=== PATIENT | female | born 1990 | race African-American/Black ===

== ENCOUNTER 2017-10-02 09:29 | Emergency (ER) | payer OTHER ==
[~2017-10-02] VITALS: Ht 162.6 cm; Wt 61.2 kg
[~2017-10-02 09:29] MED LIST: IBUPROFEN800 M1 PO; PRENATAL TABLE1 EAC2 PO
--- NOTE | 2017-10-02 11:17 | ED GENERAL ADULT ---
History of Present Illness General Chief Complaint: Allergy Symptoms Stated Complaint: ALLERGIC RX STATES FROM FACE CREAM Source: patient Exam Limitations: language barrier Vital Signs & Intake/Output Vital Signs & Intake/Output ED Intake and Output 10/03 0000 10/02 1200 Intake Total 120 Output Total Balance 120 Intake, Oral 120 Patient 135 lb Weight Weight Reported by Patient Measurement Method Allergies Coded Allergies: No Known Allergies (09/10/15) Reconcile Medications Ibuprofen 800 MG TABLET 800 MG PO Q6P PRN UTERINE CRAMPING Methylprednisolone. (Medrol) 4 MG TAB.DS.PK 1 DP PO AD allergic reaction 6 on day 1 then reduce by one tablet daily until gone Vit No.130/Iron/FA ( Tablet) 1 EACH TABLET 1 TAB PO DAILY (Reported) Triage Note: 27 YO FEMALE TO TRIAGE C/O ?ALLERGIC REACTION TO AMLACTIN LOTION. STATES SHE PUT IT ON HER FACE THIS AM AND HER FACE IS BURNING, DENIES SOB. REG RESP RATE NOTED. PT IS PRIMARILY BULGARIAN SPEAKING. NO HIVES NOTED. HR 130s IN TRIAGE, PT TAKEN TO EKG. Triage Nurses Notes Reviewed? yes Onset: Abrupt Duration: hour(s): Timing: constant : No Patient currently breastfeeds: No HPI: 27-year-old otherwise healthy female presenting with facial rash 2 days. Reports that she began using a new facial lotion 6 days ago, used it nightly for 4 days before developing a rash on her face 2 days ago. Has discontinued the lotion and then using [id number] hydrocortisone cream without relief. Denies lip/tongue swelling, throat swelling, difficulty swallowing, chest pain, shortness of breath, abdominal pain, nausea, vomiting, diarrhea. (Nancy Seth) Past History Travel History Traveled to [place] past 21 day No Medical History Any Pertinent Medical History? none Neurological: NONE EENT: NONE Cardiovascular: NONE Respiratory: NONE Gastrointestinal: NONE Hepatic: NONE Renal: NONE Musculoskeletal: NONE Psychiatric: NONE Endocrine: NONE Surgical History Surgical History: appendectomy Psychosocial History What is your primary language Serbian Tobacco Use: Never used Family History Hx Contributory? No (Nancy Seth) Review of Systems Review of Systems Constitutional: Reports: no symptoms. EENTM: Reports: no symptoms. Respiratory: Reports: no symptoms. Cardiovascular: Reports: no symptoms. GI: Reports: no symptoms. Genitourinary: Reports: no symptoms. Musculoskeletal: Reports: no symptoms. Skin: Reports: see HPI, rash. Neurological/Psychological: Reports: no symptoms. Hematologic/Endocrine: Reports: no symptoms. Immunologic/Allergic: Reports: no symptoms. (Nancy Seht) Physical Exam Physical Exam General Appearance: well developed/nourished, no apparent distress, alert, awake , comfortable Head: atraumatic, normal appearance Eyes: Bilateral: normal appearance. Ears, Nose, Throat: normal ENT inspection, No OP edema, tongue swelling, or lip swelling. Neck: normal inspection Respiratory: normal breath sounds, lungs clear Cardiovascular: regular rate/rhythm Gastrointestinal: soft, non-tender Back: normal inspection Extremities: normal inspection Neurologic/Psych: awake, alert, oriented x 3, normal gait Skin: intact, warm/dry, erythematous macular rash to the face, no hives. Core Measures ACS in differential dx? No CVA/TIA Diagnosis: No Sepsis Present: No Sepsis Focused Exam Completed? No (Nancy Seth) Progress Differential Diagnoses I considered the following diagnoses in my evaluation of the patient: [Allergic reaction versus contact dermatitis, low concern for anaphylaxis] Plan of Care: Orders Procedure Date/time Status EKG 10/02 936 Active Pt given benadeyl, pepcid, and prednisone, and reports some relief in her syptoms. No evidence of anaphylaxis. Instructed to D/C lotion, and given rx medrol dose pack. Instructed to use benadryl for the next 24 hours. Counseled on supportive care and strict return precautions. Initial ED EKG: rhythm (sinus), rate (127), no ST T wave changes (Nancy Seth) Departure Departure Disposition: HOME OR SELF CARE Condition: Stable Clinical Impression Primary Impression: Allergic reaction Referrals: Patient Has No Primary Care Dr (PCP/Family) Additional Instructions: Stop using the facial lotion that you purchase. Take 25mg benadryl every 6 hours for the next 24 hours. Take medrol dose pack as prescribed. Follow up with your primary care provider for re-evaluation. Return to the emergency department for any new or worsening symptoms. Departure Forms: Customer Survey General Discharge Information Prescriptions: Current Visit Scripts Methylprednisolone. (Medrol) 1 DP PO AD #1 DP 6 on day 1 then reduce by one tablet daily until gone (Nancy Seth) PA/GLASS CARRIER Co-Sign Statement Statement: ED Attending supervision documentation- I saw and evaluated the patient. I have also reviewed all the pertinent lab results and diagnostic results. I agree with the findings and the plan of care as documented in the PA's/GLASS CARRIER's documentation. x I have reviewed the ED Record and agree with the PA's/GLASS CARRIER's documentation. [] Additions or exceptions (if any) to the PAs/GLASS CARRIER's note and plan are summarized below: [] (Donnie CARDOSO,Chu) Critical Care Note Critical Care Note Critical Care Time: non-applicable (David ERAZO,Nancy)
[2017-10-02 11:52] VITALS: BP 134/86
[2017-10-02] MEDS ORDERED: MEDROL4 M2 PO (12:18)
== END 2017-10-02 12:29 ==
LOC: ERH 09:29
DX: T50.991A Poisoning by other drugs, medicaments and biological substances, accidental (unintentional), initial encounter (principal)
CPT/HCPCS: 93005; 93010